=== PATIENT | male | born 1960 | race Caucasian/White ===

== ENCOUNTER 2022-07-15 13:42 | Outpatient (CLI) | payer BC, SELFPAY | END 2022-07-15 13:43 | disposition home or self-care (01) | LOC: LONREF 13:44 | PROVIDERS: PCP Family Medicine; Visit Provider Family Medicine | DX: I10 Essential (primary) hypertension (principal); E78.5 Hyperlipidemia, unspecified; M10.9 Gout, unspecified | CPT/HCPCS: 80048 ==

== ENCOUNTER 2023-08-30 15:16 | Outpatient (CLI) | payer BC, SELFPAY | END 2023-08-30 15:17 | disposition home or self-care (01) | PROVIDERS: PCP Family Medicine; Visit Provider Family Medicine | DX: I10 Essential (primary) hypertension (principal); Z12.5 Encounter for screening for malignant neoplasm of prostate | CPT/HCPCS: 80048; G0103 ==

== ENCOUNTER 2024-11-22 13:40 | Outpatient (CLI) | payer BC, SELFPAY | END 2024-11-22 13:41 | disposition home or self-care (01) | PROVIDERS: PCP Family Medicine; Visit Provider Family Medicine | DX: Z00.00 Encounter for general adult medical examination without abnormal findings (principal); I10 Essential (primary) hypertension | CPT/HCPCS: 80048; 80061 ==

== ENCOUNTER 2025-02-04 10:56 | Outpatient (CLI) | payer BC, SELFPAY ==
--- NOTE | 2025-02-04 12:20 | P.ANES_ITS ---
Anesthesia Charges Start Date/Time Anesthesia Start Date: 02/04/25 Anesthesia Start Time: 11:55 Stop Date/Time Anesthesia Stop Date: 02/04/25 Anesthesia Stop Time: 12:18 Coding CPT Codes CPT Codes: BRANDI LWR INTST NDSC NOS - [id number] ([id number]) P2 - PATIENT W/MILD SYST DISEASE, QK - PIANO INSTRUCTOR 2-4 CNCRNT ANES PROC, QX - CHEMIST ENZYMES SVC W/ MD MED DIRECTION
--- NOTE | 2025-02-04 12:20 | W.ANESCHARGE ---
Anesthesia Charges Start Date/Time Anesthesia Start Date: 02/04/25 Anesthesia Start Time: 11:55 Stop Date/Time Anesthesia Stop Date: 02/04/25 Anesthesia Stop Time: 12:18 Coding CPT Codes CPT Codes: BRANDI LWR INTST NDSC NOS - [id number] ([id number]) P2 - PATIENT W/MILD SYST DISEASE, QK - TANK CHARGER 2-4 CNCRNT ANES PROC, QX - BEEF SPLITTER SVC W/ MD MED DIRECTION
--- NOTE | 2025-02-04 12:21 | P.ANES_ITS ---
Anesthesia Charges Start Date/Time Anesthesia Start Date: 02/04/25 Anesthesia Start Time: 11:55 Stop Date/Time Anesthesia Stop Date: 02/04/25 Anesthesia Stop Time: 12:18 Coding CPT Codes CPT Codes: BRANDI LWR INTST NDSC NOS - [id number] ([id number]) P2 - PATIENT W/MILD SYST DISEASE, QK - HAT BLOCKING OPERATOR 2-4 CNCRNT ANES PROC, QX - EMPLOYMENT SERVICES DIRECTOR SVC W/ MD MED DIRECTION
--- NOTE | 2025-02-04 12:21 | W.ANESCHARGE ---
Anesthesia Charges Start Date/Time Anesthesia Start Date: 02/04/25 Anesthesia Start Time: 11:55 Stop Date/Time Anesthesia Stop Date: 02/04/25 Anesthesia Stop Time: 12:18 Coding CPT Codes CPT Codes: BRANDI LWR INTST NDSC NOS - [id number] ([id number]) P2 - PATIENT W/MILD SYST DISEASE, QK - GUEST ASSOCIATE 2-4 CNCRNT ANES PROC, QX - MEDICAL RADIATION TECH SVC W/ MD MED DIRECTION
== END 2025-02-04 10:57 | disposition home or self-care (01) ==
LOC: OP CLINIC 11:01
PROVIDERS: PCP Family Medicine; Visit Provider Surgery
DX: Z12.11 Encounter for screening for malignant neoplasm of colon (principal); D12.0 Benign neoplasm of cecum; D12.3 Benign neoplasm of transverse colon; K57.30 Diverticulosis of large intestine without perforation or abscess without bleeding; Z86.0100 Personal history of colon polyps, unspecified
CPT/HCPCS: 00811; 00812; 45385; J2704